=== PATIENT | male | born 1990 | race Hispanic/Latino ===

== ENCOUNTER 2018-03-03 18:32 | Emergency (ER) | payer OTHER | END 2018-03-03 19:40 | disposition home or self-care (01) | LOC: EDH 18:32 | DX: Z87.891 Personal history of nicotine dependence (principal) | CPT/HCPCS: 99281 ==

== ENCOUNTER 2021-09-19 11:32 | Emergency (ER) | payer OTHER ==
[~2021-09-19] VITALS: Ht 170.2 cm; Wt 95.3 kg
[2021-09-19] MEDS ORDERED: ONDANSETRON 4MG TABLET PO ONE (14:00)
[2021-09-19] MEDS ORDERED: IBUPROFEN 600 MG TABLET PO ONE (14:00)
[2021-09-19] MEDS ORDERED: ACETAMINOPHEN 500 MG TABLET PO ONE (14:00)
[2021-09-19] MEDS ORDERED: ACET-3194 PO (14:09)
[2021-09-19] MEDS ORDERED: BROM237S PO (14:09)
[2021-09-19] MEDS ORDERED: ONDA4TAB4 PO (14:09)
[2021-09-19] MEDS ORDERED: IBUP-2070 PO (14:09)
[2021-09-19 15:08] VITALS: BP 120/72
== END 2021-09-19 15:21 | disposition home or self-care (01) ==
LOC: EDH 11:32
DX: U07.1 COVID-19 (principal); E11.9 Type 2 diabetes mellitus without complications; Z79.1 Long term (current) use of non-steroidal anti-inflammatories (NSAID); Z79.899 Other long term (current) drug therapy
CPT/HCPCS: 87635; 87804 ×2; 99284; C9803; Q0162